=== PATIENT | female | born 1930 | race Caucasian/White ===

== ENCOUNTER 2017-11-30 21:14 | Inpatient (IN) | payer MEDICARE ==
[~2017-11-30] VITALS: Ht 175.3 cm; Wt 57.6 kg
--- NOTE | 2017-11-30 21:35 | NUR ---
Dr. Joshi at bedside for MSE.
[2017-11-30] MEDS ORDERED: NA P133E RC (21:54)
[2017-11-30] MEDS ORDERED: TIMO5SOL11 EACHEYE (21:54)
[2017-11-30] MEDS ORDERED: MAG30ORA PO (21:54)
[2017-11-30] MEDS ORDERED: DOCU-141 PO (21:54)
[2017-11-30] MEDS ORDERED: QUET25TA PO (21:54)
[2017-11-30] MEDS ORDERED: ASPI-605 PO (21:54)
[2017-11-30] MEDS ORDERED: LORA-258 PO (21:54)
[2017-11-30] MEDS ORDERED: MAGN400O6 PO (21:54)
[2017-11-30] MEDS ORDERED: BISA10SU21 RC (21:54)
[2017-11-30] MEDS ORDERED: TEMA7.5C PO (21:54)
[2017-11-30] MEDS ORDERED: DIVA125C PO (21:54)
[2017-11-30] MEDS ORDERED: ACET-2154 PO (21:54)
[2017-11-30 21:56] LABS: BASOPHILS # (AUTO) 0.1 K/uL (0.0-8.0); BASOPHILS % (AUTO) 1.2 % (0.0-2.0); EOSINOPHILS # (AUTO) 0.1 K/uL (0.0-0.7); EOSINOPHILS % (AUTO) 1.2 % (0.0-7.0); HEMATOCRIT 35.2 % (31.2-41.9); HEMOGLOBIN 11.9 g/dL (10.9-14.3); LYMPHOCYTES # (AUTO) 1.8 K/uL (20.0-40.0); LYMPHOCYTES % (AUTO) 18.6 % (20.5-51.5); MEAN CORPUSCULAR HEMOGLOBIN 29.9 uug (24.7-32.8); MEAN CORPUSCULAR HGB CONC 34 g/dL (32.3-35.6); MEAN CORPUSCULAR VOLUME 88.2 fL (75.5-95.3); MONOCYTES # (AUTO) 1.3 K/uL (2.0-10.0); MONOCYTES % (AUTO) 13.9 % (0.0-11.0); NEUTROPHILS # (AUTO) 6.1 K/uL (1.8-8.9); NEUTROPHILS % (AUTO) 65.1 % (38.5-71.5); PLATELET COUNT (AUTO) 317 K/uL (179-408); RED BLOOD CELL COUNT(AUTO) 3.99 MIL/uL (3.63-4.92); WHITE BLOOD COUNT (AUTO) 9.4 K/uL (3.8-11.8)
[2017-11-30 22:08] LABS: CARBON DIOXIDE 26 mmol/L (21-32); CHLORIDE 107 mmol/L (98-107); GLUCOSE 119 mg/dL (74-106); POTASSIUM 3.8 mmol/L (3.5-5.1); UREA NITROGEN, BLOOD 34 mg/dL (7-18)
[2017-11-30 22:14] LABS: ALANINE AMINOTRANSFERASE 14 U/L (14-59); ALKALINE PHOSPHATASE 128 U/L (50-136); ASPARTATE AMINOTRANSFERASE 15 U/L (15-37); BILIRUBIN,DIRECT 0.1 mg/dL (0.0-0.2); BILIRUBIN,TOTAL 0.2 mg/dL (0.2-1.0); TOTAL PROTEIN, SERUM 6.6 g/dL (6.4-8.2)
[2017-11-30 22:17] LABS: ETHANOL < 3 MG/DL (0-0)
[2017-11-30 22:22] LABS: THYROID STIMULATING HORMONE 3.665 mIU/mL (0.358-3.740)
[2017-11-30 23:09] LABS: *BILIRUBIN,URIN NEGATIVE (NEGATIVE); *BLOOD, URINE NEGATIVE (NEGATIVE); *CLARITY,URINE CLEAR (CLEAR); *COLOR,URINE YELLOW (YELLOW); *KETONES,URINE NEGATIVE (NEGATIVE); *PROTEIN,URINE NEGATIVE (NEGATIVE); *UROBILINOGEN,URINE 0.2 E.U./dl (NORMAL); LEUKOCYTE ESTERASE ,URINE TRACE (NEGATIVE); NITRITE, URINE NEGATIVE (NEGATIVE); UGLUCOSE NEGATIVE (NEGATIVE)
[2017-11-30 23:20] LABS: BACTERIA,URINE NONE SEEN /HPF (NONE SEEN); RBC,URINE 0-3 /HPF (0-3); SQUAMOUS EPITHELIAL CELL,UR FEW /HPF (NONE SEEN)
[2017-11-30 23:21] LABS: *AMPHETAMINE, URINE NEGATIVE (NEGATIVE); *BARBITURATE, URINE NEGATIVE (NEGATIVE); *CANNABINOID, URINE NEGATIVE (NEGATIVE); *COCCAINE, URINE NEGATIVE (NEGATIVE); *OPIATE, URINE NEGATIVE (NEGATIVE); *PHENCYCLIDINE SCREEN,URINE NEGATIVE (NEGATIVE)
--- NOTE | 2017-11-30 23:40 | NUR ---
medically cleared by Dr Joshi
[2017-12-01 00:11] VITALS: BP 167/84
[2017-12-01] MEDS ORDERED: MAGNESIUM HYDROXIDE 30 ML LIQUID UDC PO PRN ×2 (00:45→03:00)
[2017-12-01] MEDS ORDERED: ACETAMINOPHEN 325 MG TABLET PO PRN ×2 (00:45→03:00)
[2017-12-01] MEDS ORDERED: MAG HYDROX/AL HYDROX/SIMETH 30 ML LIQUID UDC PO PRN (00:45)
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
[2017-12-01] MEDS ORDERED: BISACODYL 10 MG SUPP.RECT RC PRN (03:00)
[2017-12-01] MEDS ORDERED: FLEET ENEMA 133 ML BOTTLE RC PRN (03:00)
[2017-12-01 04:06] VITALS: BP 145/58
--- NOTE | 2017-12-01 07:00 | NUR ---
Received patient in bed. Took all medications. No agitation noted. [employer] needs. Will monitor.
--- NOTE | 2017-12-01 07:01 | NUR ---
DAUGHTER BRE WAS NOTIFY OF PT ADMISSION TO [facility] AT ,
[2017-12-01 07:30] VITALS: BP 118/50
[2017-12-01] MEDS ORDERED: TIMOLOL MALEATE XE 0.5% OPHT 5 ML BOTTLE EACHEYE SCH ×2 (09:00)
[2017-12-01] MEDS: ASPIRIN EC 81 MG TABLET.DR PO SCH (09:40)
[2017-12-01] MEDS: DOCUSATE SODIUM 100 MG CAPSULE PO SCH (09:40)
[2017-12-01] MEDS: SERTRALINE HCL 50 MG TABLET PO SCH (12:08)
[2017-12-01] MEDS: VALPROIC ACID 250 MG/5 ML LIQUID UDC PO SCH ×2 (12:08→21:43)
[2017-12-01] MEDS: BENZTROPINE MESYLATE 0.5 MG TABLET PO SCH ×2 (12:08→17:35)
[2017-12-01 15:54] VITALS: BP 138/70
[2017-12-01] MEDS: risperiDONE-M 0.5 MG TAB.RAPDIS PO SCH (17:35)
[2017-12-01] MEDS: TIMOLOL MALEATE 0.5% OPHT DROP 5 ML BOTTLE EACHEYE SCH (17:38)
--- NOTE | 2017-12-01 18:00 | NUR ---
Patient ambulates with unsteady gait. Uses walker. Assisted back to bed. Took all medications. No agitation noted. will monitor
--- NOTE | 2017-12-01 20:00 | NUR ---
RECEIVED PATIENT IN HER ROOM IN BED. SHE IS NOTED ASLEEP BUT EASILY AROUSABLE. SHE IS A/O X 2 (PERSON AND PLACE) SHE IS ABLE TO AMBULATE WITH THE AID OF A FWW. SHE IS ABLE TO MAKE HER NEEDS KNOWN. PT NOTED WITH LOW MOOD, BLUNTED AFFECT. SHE IS ABLE TO COMPLY WITH MEDICATION REGIMENT AT THIS TIME. SAFETY IS EMPHASIS. WILL CONTINUE TO MONITOR.
[2017-12-01 20:56] VITALS: BP 116/57
--- NOTE | 2017-12-02 06:53 | NUR ---
PATIENT SLEPT FOR APPROX 10.0 HRS THROUGH THE NIGHT. NO AGGRESSIVE/COMBATIVE BX NOTED OR REPORTED DURING THE SHIFT. SHE IS ABLE TO MAKE HER NEEDS KNOWN. WILL CONTINUE TO MONITOR.
--- NOTE | 2017-12-02 08:00 | NUR ---
RECEIVED PATIENT IN HER ROOM IN BED, ASLEEP BUT EASILY AROUSABLE. SHE IS A/O X 2 (PERSON AND PLACE) SHE IS ABLE TO AMBULATE WITH THE AID OF A FWW. ABLE TO MAKE KNOWN NEEDS. SHE IS ABLE TO COMPLY WITH MEDICATION REGIMENT AT THIS TIME. SAFETY IS EMPHASIS. WILL CONTINUE TO MONITOR.
[2017-12-02 08:14] VITALS: BP 122/57
[2017-12-02] MEDS: risperiDONE-M 0.5 MG TAB.RAPDIS PO SCH ×2 (08:54→16:39)
[2017-12-02] MEDS: DOCUSATE SODIUM 100 MG CAPSULE PO SCH (08:54)
[2017-12-02] MEDS: VALPROIC ACID 250 MG/5 ML LIQUID UDC PO SCH ×2 (08:54→20:09)
[2017-12-02] MEDS: BENZTROPINE MESYLATE 0.5 MG TABLET PO SCH ×2 (08:54→16:39)
[2017-12-02] MEDS: ASPIRIN EC 81 MG TABLET.DR PO SCH (08:54)
[2017-12-02] MEDS: TIMOLOL MALEATE 0.5% OPHT DROP 5 ML BOTTLE EACHEYE SCH ×2 (08:55→16:39)
[2017-12-02] MEDS: SERTRALINE HCL 50 MG TABLET PO SCH (12:19)
--- NOTE | 2017-12-02 20:00 | NUR ---
RECEIVED PATIENT IN A ROOM SITTING IN A CHAIR. SHE IS NOTED A/O 3, SHE IS ABLE TO AMBULATE WITH SLOW BUT STEADY GAIT WITH THE AID OF A FW WALKER. SHE IS NOTED WITH FAIR INSIGHT AND JUDGMENT, CALM AND COOPERATIVE AT THIS TIME. NO AGGRESSIVE/COMBATIVE BX NOTED OR REPORTED AT THIS TIME. LOW MOOD, BLUNTED AFFECTED. SAFETY EMPHASIS, BED ALARM ON. WILL CONTINUE TO MONITOR.
[2017-12-02 21:37] VITALS: BP 98/56
--- NOTE | 2017-12-03 06:18 | NUR ---
AT APPROX. 0555 THE BED ALARM OF ROOM #141 BED B WAS HEARD, THIS RELOCATION COMMISSIONER IMMEDIATELY ARRIVED AT THE ROOM AND SAW PATIENT FALLING BACKWARDS NEXT TO THE RIGHT SIDE OF HER BED. HITTING THE BACK OF HER HEAD AGAINST THE WALL. SHE WAS HELPED BACK TO BED. UPON ASSESSMENT, A SKIN ABRASION OR APPROX 3CMX2.5CM WAS NOTED ON LEFT SIDE OF ELBOW, NO ACTIVE BLEEDING WAS NOTED. PHOTO WAS TAKEN. SKIN TEAR WAS CLEANED WITH NS AND A TEGADERM WAS PLACED. NO OTHER INJURIES WERE FOUND ON HER BODY AT THIS TIME. UPON ASSESSMENT OF HER HEAD AND SCALP, NO OPEN WOUNDS, LACERATION, SWELLING, BRUISES OR REDNESS NOTED AT THIS TIME. PATIENT NOTED WITH FULL ROM ON ALL 4 EXTREMITIES. NO CHANGES IN LOC WAS NOTED. V/S STABLE: B/P 146/60MMHG, PULSE 78BPM, RESPIRATION 18 BREATHS PER MIN. O2SAT 97%.PATIENT IN NO DISTRESS, DENIES PAIN OR DISCOMFORT AT THIS TIME DR ELIAS QUILES WAS PAGED AT APPROX 0600 AND A CALL BACK WAS RECEIVED AT APPROX 0610, NEW ORDER OBTAINED TO DO A STAT CT SCAN. WILL CONTINUE TO MONITOR.
--- NOTE | 2017-12-03 06:30 | NUR ---
DR. CALLE WAS PAGED AT APPROX 0625 ABOUT PATIENT'S RECENT FALL. A CALL BACK WAS RECEIVED AT APPROX 0625. DR. CALLE WAS NOTIFY OF PATIENT'S FALL AND NEW ORDER RECEIVED TO PLACED PATIENT ON 1:1 SUPERVISION FOR FALL PRECAUTION. WILL CONTINUE TO MONITOR.
--- NOTE | 2017-12-03 06:52 | NUR ---
A VOICE MESSAGE WAS LEFT TO DAUGHTER BRE AT TO INFORMED OF PATIENT RECENT FALL.
[2017-12-03 07:30] VITALS: BP 133/64
[2017-12-03] MEDS: BENZTROPINE MESYLATE 0.5 MG TABLET PO SCH ×2 (08:27→16:42)
[2017-12-03] MEDS: VALPROIC ACID 250 MG/5 ML LIQUID UDC PO SCH ×2 (08:27→20:15)
[2017-12-03] MEDS: DOCUSATE SODIUM 100 MG CAPSULE PO SCH (08:27)
[2017-12-03] MEDS: ASPIRIN EC 81 MG TABLET.DR PO SCH (08:27)
[2017-12-03] MEDS: TIMOLOL MALEATE 0.5% OPHT DROP 5 ML BOTTLE EACHEYE SCH ×2 (08:33→16:42)
[2017-12-03] MEDS: risperiDONE-M 0.5 MG TAB.RAPDIS PO SCH ×2 (08:34→16:43)
[2017-12-03] MEDS: SERTRALINE HCL 50 MG TABLET PO SCH (12:05)
--- NOTE | 2017-12-03 16:00 | NUR ---
Initial DC Plan: Patient currently resides at [facility] [[address], [place] [address]; ]. SW spoke to patient's daughter Barbara [[phone]] who stated she is trying to find an assisted living for patient. SW will follow up with MD, patient, and patient's daughter to discuss most appropriate discharge plans. SW will form a safe and proper discharge.
[2017-12-03 16:32] VITALS: BP 108/53
[2017-12-03 21:15] VITALS: BP 129/50
--- NOTE | 2017-12-04 06:53 | NUR ---
GPS: REMAIN CALM AND COOPERATIVE WITH MEDICATIONS AND CARE. CONTINUE ON 1:1 SITTER AT BED SIDE FOR SAFETY. SLEPT 5:30 HRS THROUGH THE NIGHT. PATIENT AMBULATE WITH UNSTEADY GAIT. ASSISTED WITH ADL'S. CONTINUE MONITORING FOR SAFETY.
[2017-12-04 07:30] VITALS: BP 119/50
[2017-12-04] MEDS: risperiDONE-M 0.5 MG TAB.RAPDIS PO SCH ×2 (08:39→16:37)
[2017-12-04] MEDS: BENZTROPINE MESYLATE 0.5 MG TABLET PO SCH ×2 (08:39→16:37)
[2017-12-04] MEDS: ASPIRIN EC 81 MG TABLET.DR PO SCH (08:39)
[2017-12-04] MEDS: DOCUSATE SODIUM 100 MG CAPSULE PO SCH (08:40)
[2017-12-04] MEDS: VALPROIC ACID 250 MG/5 ML LIQUID UDC PO SCH ×2 (08:40→20:22)
[2017-12-04] MEDS: TIMOLOL MALEATE 0.5% OPHT DROP 5 ML BOTTLE EACHEYE SCH ×2 (08:42→16:37)
[2017-12-04] MEDS: SERTRALINE HCL 50 MG TABLET PO SCH (13:05)
[2017-12-04 17:06] VITALS: BP 111/55
[2017-12-04 20:00] VITALS: BP 116/58
--- NOTE | 2017-12-05 06:41 | NUR ---
GPS: REMAIN ON 1:1 SITTER AT BED SIDE FOR SAFETY. SLEPT 8:30 HRS THROUGH THE NIGHT.CONTINUE MONITORING FOR SAFETY.
[2017-12-05 07:30] VITALS: BP 129/56
[2017-12-05] MEDS: TIMOLOL MALEATE 0.5% OPHT DROP 5 ML BOTTLE EACHEYE SCH ×2 (09:05→17:07)
[2017-12-05] MEDS: risperiDONE-M 0.5 MG TAB.RAPDIS PO SCH ×2 (09:06→17:06)
[2017-12-05] MEDS: ASPIRIN EC 81 MG TABLET.DR PO SCH (09:06)
[2017-12-05] MEDS: DOCUSATE SODIUM 100 MG CAPSULE PO SCH (09:06)
[2017-12-05] MEDS: BENZTROPINE MESYLATE 0.5 MG TABLET PO SCH ×2 (09:06→17:06)
[2017-12-05] MEDS: VALPROIC ACID 250 MG/5 ML LIQUID UDC PO SCH ×2 (09:06→21:02)
[2017-12-05] MEDS: SERTRALINE HCL 50 MG TABLET PO SCH (13:05)
[2017-12-05 15:30] VITALS: BP 90/53
--- NOTE | 2017-12-05 20:00 | NUR ---
RECEIVED PATIENT IN HER ROOM IN BED. SHE IS ON 1:1 SUPERVISION FOR FALL PRECAUTION. SHE IS NOTED ASLEEP BUT EASILY AROUSABLE. SHE IS A/O X 2 (PERSON AND PLACE) SHE IS ABLE TO AMBULATE WITH THE AID OF A FWW. SHE IS ABLE TO MAKE HER NEEDS KNOWN. PT NOTED WITH LOW MOOD, BLUNTED AFFECT. SHE IS ABLE TO COMPLY WITH MEDICATION REGIMENT AT THIS TIME. SAFETY IS EMPHASIS. WILL CONTINUE TO MONITOR.
[2017-12-05 20:15] VITALS: BP 127/58
--- NOTE | 2017-12-06 06:44 | NUR ---
PATIENT SLEPT FOR APPROX 6.30HRS THROUGH THE NIGHT. CONTINUE ON 1:1 SUPERVISION FOR FALL PRECAUTION. SHE CONTINUE MED COMPLIANT. SKIN TEAR IN LEFT ELBOW IS IMPROVING.
[2017-12-06 07:30] VITALS: BP 127/49
[2017-12-06] MEDS: TIMOLOL MALEATE 0.5% OPHT DROP 5 ML BOTTLE EACHEYE SCH ×2 (09:27→16:14)
[2017-12-06] MEDS: DOCUSATE SODIUM 100 MG CAPSULE PO SCH (09:27)
[2017-12-06] MEDS: VALPROIC ACID 250 MG/5 ML LIQUID UDC PO SCH (09:28)
[2017-12-06] MEDS: ASPIRIN EC 81 MG TABLET.DR PO SCH (09:28)
[2017-12-06] MEDS: risperiDONE-M 0.5 MG TAB.RAPDIS PO SCH ×2 (09:28→16:14)
[2017-12-06] MEDS: BENZTROPINE MESYLATE 0.5 MG TABLET PO SCH ×2 (09:28→16:14)
[2017-12-06] MEDS: SERTRALINE HCL 50 MG TABLET PO SCH (13:50)
[2017-12-06 15:34] VITALS: BP 119/55
--- NOTE | 2017-12-06 15:47 | NUR ---
Firearms Report: DAISHA submitted Mental Health Report to [facility] on 12/06.
--- NOTE | 2017-12-06 15:48 | NUR ---
Discharge Planning Note: DAISHA called patient's daughter Barbara [[phone]] to discuss discharge planning. Barbara stated that she has been speaking with [facility] [place] [ ] for potential placement for patient, as well as the [facility] [place] [ ] where patient was living previously. DAISHA also spoke with Marilia at the [facility] to arrange a possible assessment of patient. ADISHA also faxed [facility] [phone]] for possible placement for patient. DAISHA will continue to follow up with Barbara to discuss discharge plans.
--- NOTE | 2017-12-06 15:54 | NUR ---
Probable Cause Hearing: DAISHA notified patient's daughter Barbara [[phone]] of patient's [facility] scheduled for tomorrow. Barbara stated she would like to attend patient's hearing.
[2017-12-06] MEDS ORDERED: VALPROIC ACID 250 MG/5 ML LIQUID UDC GT SCH (17:30)
[2017-12-06 20:16] VITALS: BP 109/49
[2017-12-07] MEDS: TEMAZEPAM 7.5 MG CAPSULE PO PRN (00:42)
[2017-12-07 00:50] LABS: *BILIRUBIN,URIN NEGATIVE (NEGATIVE); *BLOOD, URINE NEGATIVE (NEGATIVE); *COLOR,URINE YELLOW (YELLOW); *KETONES,URINE 1+ (NEGATIVE); *PROTEIN,URINE NEGATIVE (NEGATIVE); *UROBILINOGEN,URINE 0.2 E.U./dl (NORMAL); LEUKOCYTE ESTERASE ,URINE TRACE (NEGATIVE); NITRITE, URINE NEGATIVE (NEGATIVE); PH,URINE 5.5 (5.0-8.0); UGLUCOSE NEGATIVE (NEGATIVE)
[2017-12-07 01:14] LABS: *CLARITY,URINE HAZY (CLEAR)
[2017-12-07 01:21] LABS: BACTERIA,URINE FEW /HPF (NONE SEEN); SQUAMOUS EPITHELIAL CELL,UR MODERATE /HPF (NONE SEEN); WBC,URINE 20-50 /HPF (0-3)
[2017-12-07] MEDS: LORAZEPAM 0.5 MG TABLET PO PRN (02:02)
[2017-12-07 07:30] VITALS: BP 126/49
[2017-12-07] MEDS: VALPROIC ACID 250 MG/5 ML LIQUID UDC PO SCH (08:57)
[2017-12-07] MEDS: TIMOLOL MALEATE 0.5% OPHT DROP 5 ML BOTTLE EACHEYE SCH ×2 (08:57→16:51)
[2017-12-07] MEDS: ASPIRIN EC 81 MG TABLET.DR PO SCH (08:58)
[2017-12-07] MEDS: DOCUSATE SODIUM 100 MG CAPSULE PO SCH (08:58)
[2017-12-07] MEDS: BENZTROPINE MESYLATE 0.5 MG TABLET PO SCH ×2 (08:58→16:51)
[2017-12-07] MEDS: risperiDONE-M 0.5 MG TAB.RAPDIS PO SCH ×2 (08:59→16:51)
[2017-12-07] MEDS ORDERED: VALPROIC ACID 250 MG/5 ML LIQUID UDC GT SCH (09:00)
[2017-12-07] MEDS: SERTRALINE HCL 50 MG TABLET PO SCH (14:28)
[2017-12-07 15:15] VITALS: BP 113/58
[2017-12-07 20:36] VITALS: BP 146/59
[2017-12-07] MEDS: NITROFURANTOIN/NITROFURAN MAC 100 MG CAPSULE PO SCH (20:50)
[2017-12-08] MEDS: VALPROIC ACID 250 MG/5 ML LIQUID UDC PO SCH (08:27)
[2017-12-08] MEDS: NITROFURANTOIN/NITROFURAN MAC 100 MG CAPSULE PO SCH ×2 (08:27→20:51)
[2017-12-08] MEDS: risperiDONE-M 0.5 MG TAB.RAPDIS PO SCH ×2 (08:27→17:24)
[2017-12-08] MEDS: ASPIRIN EC 81 MG TABLET.DR PO SCH (08:27)
[2017-12-08] MEDS: TIMOLOL MALEATE 0.5% OPHT DROP 5 ML BOTTLE EACHEYE SCH ×2 (08:27→17:24)
[2017-12-08] MEDS: BENZTROPINE MESYLATE 0.5 MG TABLET PO SCH ×2 (08:27→17:24)
[2017-12-08] MEDS: DOCUSATE SODIUM 100 MG CAPSULE PO SCH (08:27)
[2017-12-08 08:29] VITALS: BP 148/56
[2017-12-08] MEDS: SERTRALINE HCL 50 MG TABLET PO SCH (13:06)
[2017-12-08 16:30] VITALS: BP 119/55
[2017-12-08 20:39] VITALS: BP 160/97
--- NOTE | 2017-12-09 00:01 | NUR ---
RECEIVED Pt IN BED, SLEEPING BUT EASILY AROUSED, ALERT AND ORIENTED TO NAME ONLY, Pt IS DISORIENTED AND CONFUSED, COOPERATIVE AND COMPLIANT WITH MEDS AND CARE STAFF. Pt HAS 1:1 SITTER AT BEDSIDE FOR SAFETY. Pt IN STABLE CONDITION WITH NO DISTRESS NOTED.
[2017-12-09 08:00] VITALS: BP 146/75
[2017-12-09] MEDS: risperiDONE-M 0.5 MG TAB.RAPDIS PO SCH ×2 (08:27→16:06)
[2017-12-09] MEDS: DOCUSATE SODIUM 100 MG CAPSULE PO SCH (08:27)
[2017-12-09] MEDS: BENZTROPINE MESYLATE 0.5 MG TABLET PO SCH ×2 (08:27→16:06)
[2017-12-09] MEDS: NITROFURANTOIN/NITROFURAN MAC 100 MG CAPSULE PO SCH ×2 (08:27→20:54)
[2017-12-09] MEDS: VALPROIC ACID 250 MG/5 ML LIQUID UDC PO SCH (08:27)
[2017-12-09] MEDS: ASPIRIN EC 81 MG TABLET.DR PO SCH (08:27)
[2017-12-09] MEDS: TIMOLOL MALEATE 0.5% OPHT DROP 5 ML BOTTLE EACHEYE SCH ×2 (08:28→16:07)
--- NOTE | 2017-12-09 10:41 | NUR ---
Gps/[employer] Director- Medication compliant , needed prompting to initiate simple tasks, not interactive. Safety reviewed and emphasized. Remains on 1:1 Nursing supervision.
[2017-12-09] MEDS: SERTRALINE HCL 50 MG TABLET PO SCH (12:43)
--- NOTE | 2017-12-09 15:31 | NUR ---
Notified patient and patient's daughter of room change to Room 138A. Both agreeable and verbalized understanding.
[2017-12-09 16:03] VITALS: BP 114/52
[2017-12-09 21:00] VITALS: BP 125/62
--- NOTE | 2017-12-09 23:07 | NUR ---
RECEIVED Pt IN BED, AWAKE, ALERT AND ORIENTED TO NAME ONLY, Pt IS CONFUSED AND SLEEPY BUT ABLE TO HOLD CONVERSATION, COOPERATIVE AND COMPLIANT WITH MEDS AND CARE STAFF. Pt HAS 1:1 SITTER AT BEDSIDE FOR SAFETY. Pt IN STABLE CONDITION WITH NO DISTRESS NOTED.
[2017-12-10] MEDS: TEMAZEPAM 7.5 MG CAPSULE PO PRN (01:59)
--- NOTE | 2017-12-10 02:08 | NUR ---
Pt WOKE UP AND ASKING 1:1 SITTER THAT SHE WANTS TO GET OUT OF BED TO SEE HER . NURSE CAME IN TO SPEAK WITH Pt, SHE STATES THAT SHE IS NOT GOING TO SLEEP AND WANTS TO SEE HER . Pt WAS GIVEN RESTORIL PO PRN. UPON ADMINISTRATION OF MED, NURSE NOTED THAT THE Pt WAS CHEEKING AND HIDING THE RESTORIL. Pt WAS INSTRUCTED TO SWALLOW THE PILL BUT CONTINUED TO CHEEK IT AFTER GIVING MULTIPLE SIPS OF WATER. AFTER MANY ENCOURAGEMENT, Pt SWALLOWED PILL. NO AGGRESSIVE BEHAVIOR NOTED. WILL CLOSELY MONITOR Pt.
--- NOTE | 2017-12-10 06:46 | NUR ---
Pt WOKE UP TO SHOWER THIS MORNING. NO AGGRESSIVE BEHAVIOR NOTED. COOPERATIVE AND COMPLIANT WITH CARE STAFF. WHILE Pt WAS IN THE SHOWER, NURSE FOUND MULTIPLE MEDICATIONS IN Pt's POCKETS. REPORTED FINDING TO CHARGE NURSE. WILL ENDORSE TO DAY SHIFT NURSE TO CRUSH MEDS FOR Pt.
[2017-12-10 07:30] VITALS: BP 104/50
[2017-12-10] MEDS: DOCUSATE SODIUM 100 MG CAPSULE PO SCH (08:04)
[2017-12-10] MEDS: NITROFURANTOIN/NITROFURAN MAC 100 MG CAPSULE PO SCH ×2 (08:04→20:32)
[2017-12-10] MEDS: ASPIRIN EC 81 MG TABLET.DR PO SCH (08:04)
[2017-12-10] MEDS: risperiDONE-M 0.5 MG TAB.RAPDIS PO SCH ×2 (08:04→17:03)
[2017-12-10] MEDS: BENZTROPINE MESYLATE 0.5 MG TABLET PO SCH ×2 (08:04→17:03)
[2017-12-10] MEDS: VALPROIC ACID 250 MG/5 ML LIQUID UDC PO SCH (08:05)
[2017-12-10] MEDS: TIMOLOL MALEATE 0.5% OPHT DROP 5 ML BOTTLE EACHEYE SCH ×2 (08:12→17:03)
[2017-12-10] MEDS: SERTRALINE HCL 50 MG TABLET PO SCH (13:48)
--- NOTE | 2017-12-10 15:41 | NUR ---
Wednesday DC Note: Patient will be discharged to [facility] [[address] [place] [address]; ] via private transportation on Wednesday 12/13. DAISHA spoke with patients daughter/GRANT Brown [[phone]] who stated she will pear picker patient from the hospital. Patients daughter is aware and agreeable to discharge plans. DAISHA spoke with Valorie at [facility] who confirmed discharge plans. Patient will follow up with Dr. Huff (Assistant Branch Operations Manager) and Dr. Hayes (Psychiatrist) at the facility. Patient was provided with additional outpatient mental health resources to [facility] Crisis Line , [facility] , and the National Suicide Prevention Lifeline . DAISHA also faxed an order for Home Health to [facility] [[phone]].
[2017-12-10 16:13] VITALS: BP 127/59
--- NOTE | 2017-12-10 20:00 | NUR ---
RECEIVED PATIENT IN THE DAY ROOM. SHE CONTINUE ON 1:1 SUPERVISION FOR FALL PRECAUTION. NOTED A/O X 2 ABLE TO MAKE HER NEEDS KNOWN. PLEASANT AND COOPERATIVE. DENIES SI/HI/AH/VH. COMPLIANT WITH MEDICATION REGIMENT AT THIS TIME. LOW MOOD NOTED, WITHDRAWN AT TIMES. FAIR INSIGHT NOTED. SAFETY EMPHASIS. WILL CONTINUE TO MONITOR.
[2017-12-10 20:23] VITALS: BP 127/59
[2017-12-11 07:30] VITALS: BP 134/61
[2017-12-11] MEDS: TIMOLOL MALEATE 0.5% OPHT DROP 5 ML BOTTLE EACHEYE SCH ×2 (08:27→16:46)
[2017-12-11] MEDS: DOCUSATE SODIUM 100 MG CAPSULE PO SCH (08:27)
[2017-12-11] MEDS: risperiDONE-M 0.5 MG TAB.RAPDIS PO SCH ×2 (08:27→16:46)
[2017-12-11] MEDS: NITROFURANTOIN/NITROFURAN MAC 100 MG CAPSULE PO SCH ×2 (08:27→20:09)
[2017-12-11] MEDS: BENZTROPINE MESYLATE 0.5 MG TABLET PO SCH ×2 (08:28→16:47)
[2017-12-11] MEDS: VALPROIC ACID 250 MG/5 ML LIQUID UDC PO SCH (08:28)
[2017-12-11] MEDS: ASPIRIN EC 81 MG TABLET.DR PO SCH (08:28)
[2017-12-11] MEDS: SERTRALINE HCL 50 MG TABLET PO SCH (12:41)
[2017-12-11 15:49] VITALS: BP 103/60
--- NOTE | 2017-12-11 16:00 | NUR ---
Gps/Waste Salvager- Stayed up on her jen-chir by the Nurses station, flat affect, monitor needs. Remains on 1:1 Nursing supervision for safety.
--- NOTE | 2017-12-11 19:45 | NUR ---
RECEIVED PATIENT IN HER ROOM, SHE CONTINUE ON 1:1 SUPERVISION FOR FALL PRECAUTION. NOTED A/O X 2 ABLE TO MAKE HER NEEDS KNOWN AND ABLE TO AMBULATE WITH A FWW WITH ONE PERSON SUPERVISION. SHE IS NOTED PLEASANT AND COOPERATIVE. LOW MOOD, WITHDRAWN SOFT VOICE, PASSIVE. DENIES SI/HI/AH/VH. COMPLIANT WITH MEDICATION REGIMENT AT THIS TIME. FAIR INSIGHT SMD JUDGMENT NOTED. SAFETY EMPHASIS. WILL CONTINUE TO MONITOR.
[2017-12-11 20:26] VITALS: BP 110/49
--- NOTE | 2017-12-11 21:15 | NUR ---
IT WAS NOTED THAT PATIENT HAVE NOT HAD A BM IN FEW DAYS. PT DENIES ABD PAIN OR DISCOMFORT, BOWEL SOUND HEARD BILATERAL. MOM 30MLS GIVEN PO PRN FOR CONSTIPATION. WILL CONTINUE TO MONITOR.
--- NOTE | 2017-12-12 06:52 | NUR ---
PATIENT SLEEP FOR APPROX 4.30HRS THROUGH THE NIGHT. SHE WAS NOTED CALM AND COOPERATIVE. NO AGGRESSIVE/COMBATIVE BX. NOTED DURING THE SHIFT. PT HAD A SMALL BM. MOM PO PRN PARTIALLY EFFECTIVE. WILL CONTINUE TO MONITOR.
[2017-12-12 07:30] VITALS: BP 140/63
[2017-12-12] MEDS: VALPROIC ACID 250 MG/5 ML LIQUID UDC PO SCH (08:01)
[2017-12-12] MEDS: BENZTROPINE MESYLATE 0.5 MG TABLET PO SCH ×2 (08:01→16:24)
[2017-12-12] MEDS: TIMOLOL MALEATE 0.5% OPHT DROP 5 ML BOTTLE EACHEYE SCH ×2 (08:01→16:24)
[2017-12-12] MEDS: DOCUSATE SODIUM 100 MG CAPSULE PO SCH (08:02)
[2017-12-12] MEDS: NITROFURANTOIN/NITROFURAN MAC 100 MG CAPSULE PO SCH ×2 (08:02→20:13)
[2017-12-12] MEDS: risperiDONE-M 0.5 MG TAB.RAPDIS PO SCH ×2 (08:02→16:24)
[2017-12-12] MEDS: ASPIRIN EC 81 MG TABLET.DR PO SCH (08:02)
[2017-12-12] MEDS: SERTRALINE HCL 50 MG TABLET PO SCH (12:18)
--- NOTE | 2017-12-12 14:49 | NUR ---
Gps/Vendor Analyst- Continue to monitor patient for cheeking her meds. administered meds. 1 pill at a time.Remains on 1:1 Nursing supervision for safety.
[2017-12-12 15:37] VITALS: BP 135/66
[2017-12-12 20:13] VITALS: BP 136/60
[2017-12-12] MEDS: LORAZEPAM 0.5 MG TABLET PO PRN (20:13)
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
[2017-12-13] MEDS: TIMOLOL MALEATE 0.5% OPHT DROP 5 ML BOTTLE EACHEYE SCH (09:18)
[2017-12-13] MEDS: ASPIRIN EC 81 MG TABLET.DR PO SCH (09:19)
[2017-12-13] MEDS: NITROFURANTOIN/NITROFURAN MAC 100 MG CAPSULE PO SCH (09:19)
[2017-12-13] MEDS: BENZTROPINE MESYLATE 0.5 MG TABLET PO SCH (09:19)
[2017-12-13] MEDS: risperiDONE-M 0.5 MG TAB.RAPDIS PO SCH (09:19)
[2017-12-13] MEDS: VALPROIC ACID 250 MG/5 ML LIQUID UDC PO SCH (09:19)
[2017-12-13] MEDS: DOCUSATE SODIUM 100 MG CAPSULE PO SCH (09:19)
[2017-12-13 09:53] VITALS: BP 133/67
--- NOTE | 2017-12-13 12:30 | NUR ---
GPS: Nursing Notes: Discharge Notes: Patient is awake and responding to her name, cooperative with nursing care, compliant with her medications, needs prompting with ADL's, denies any SI/HI, denies any AH/VH, denies any pain or discomfort, denies any SOB, discharge to [facility] at [address] [place] [address] , patient's daughter/DPOA Barbara Brown picked up patient to be transported to facility via private vehicle, instructions given to daughter, all belongings given to patient's daughter. Patient will follow up with Dr. Huff (Wine Blender) and Dr. Hayes (Psychiatrist) at the facility. Patient was provided with additional outpatient mental health resources to [facility] Crisis Line , [facility] , and the National Suicide Prevention Lifeline . SW also faxed an order for Home Health to [facility] [[phone]].
== END 2017-12-13 12:30 | DRG 885 ==
LOC: ER 21:17 → GPS 23:53
PROVIDERS: ADMIT Psychiatry & Neurology Psychiatry; ATTEND Internal Medicine
DX: F32.3 Major depressive disorder, single episode, severe with psychotic features (principal); E43 Unspecified severe protein-calorie malnutrition; N17.0 Acute kidney failure with tubular necrosis; G92 Toxic encephalopathy; F03.91 Unspecified dementia, unspecified severity, with behavioral disturbance; N39.0 Urinary tract infection, site not specified; D68.59 Other primary thrombophilia; Z68.1 Body mass index [BMI] 19.9 or less, adult; E78.5 Hyperlipidemia, unspecified; F41.9 Anxiety disorder, unspecified; H40.9 Unspecified glaucoma; J32.3 Chronic sphenoidal sinusitis; Z91.14 Patient's other noncompliance with medication regimen; Z85.3 Personal history of malignant neoplasm of breast; Z90.13 Acquired absence of bilateral breasts and nipples; M19.90 Unspecified osteoarthritis, unspecified site; Z79.82 Long term (current) use of aspirin
CPT/HCPCS: 36415; 70450; 71045; 80307; 84443; 85025; 85730; 87086; 93005; 97110; A4663; G0480; J3590